=== PATIENT | female | born 1980 | race Caucasian/White ===

== ENCOUNTER 2016-09-03 08:54 | Outpatient (CLI) | payer MEDICARE, OTHER ==
[2014-04-21 19:27] VITALS: BP 107/50
--- NOTE | 2016-09-03 14:11 | Diagnostic Imaging Report ---
SHERYL QUIROS [facility] [address] [facility] [address] [id number] Report Submission Date: Sep 03, 2016 12:49:08 PM CDT Patient Study Name: ANN ROBLES Date: Sep 03, 2016 9:12:39 AM CDT Modality Type: US Gender: F Description: US ABD LIMITED : 84 Institution: [facility] Physician: SHERYL QUIROS Examination: Ultrasound abdomen History: Elevated liver enzymes Findings: Sonographic evaluation of the right upper quadrant demonstrates the gallbladder without stones or sludge. Gallbladder wall measures 1.9 mm. Common bile duct measures 1.8 mm. No intrahepatic biliary dilation. Liver demonstrates normal homogeneous echogenicity. No mass or cyst. Normal flow on color analysis. Right kidney measures 9.0 cm in length. No cortical mass or cyst. No hydronephrosis. Pancreatic region without gross irregularity. Impression: No gallstone or obstruction. Unremarkable abdominal ultrasound. Electronically signed on Sep 03, 2016 12:49:08 PM CDT by: Cain JEROME
== END 2016-09-03 08:55 ==
LOC: RAD 08:54
PROVIDERS: ATTEND Nurse Practitioner Family
DX: R79.89 Other specified abnormal findings of blood chemistry (principal); G23.0 Hallervorden-Spatz disease
CPT/HCPCS: 76705

== ENCOUNTER 2018-10-30 10:02 | Emergency (ER) | payer MEDICARE, OTHER ==
--- NOTE | 2018-10-30 10:27 | ED Physician Documentation ---
General Adult - HISTORIAN Historian: patient, parent - HPI Stated Complaint: Fever, low O2 sat Chief Complaint: General Adult Onset: days ago (1) Timing: still present Severity: moderate Further Comments: yes (Pt is a 38 yo female with MR who lives at home. Pt is wheel-chair bound. She has hx aspiration and now has a G-tube. This am Mom found SpO2 in mid 80%'s, and HR=33 briefly. Pt also gets easily dehydrated. Pt had fever at home. On presentation, pt has stable vs. Mouth appears dry, but pt is a mouth breather. Mom says urine has been cloudy.) - ROS CONST: other (Pt cannot give ROS.) - PAST HX Past History: other (MR, hx aspiration with G-tube placed.) Allergies/Adverse Reactions: Allergies Allergy/AdvReac Type Severity Reaction Status Date / Time No Known Allergies Allergy Verified 10/30/18 10:15 Home Medications: Ambulatory Orders Medication Instructions Recorded NK 10/30/18 - SOCIAL HX Smoking History: non-smoker Alcohol Use: none Drug Use: none - FAMILY HX Family History: No - VITAL SIGNS Vital Signs: Vital Signs Temp Pulse Resp BP Pulse Ox 100.5 F H 101 H 14 97/58 98 10/30/18 10:03 10/30/18 10:03 10/30/18 10:03 10/30/18 10:03 10/30/18 10:03 - REVIEWED ASSESSMENTS Nursing Assessment Reviewed: Yes Vitals Reviewed: Yes Progress - Progress Progress: CXR: No pneumothorax, pulmonary edema, or consolidative infiltrates. The heart is not enlarged. No fractures are identified about the bony thorax. IMPRESSION: No acute intrathoracic process identified. NS 500 cc IVF x 2 u/a - neg Dehydration. May give pedialyte via G-tube. General Adult Physical Exam - PHYSICAL EXAM GENERAL APPEARANCE: no distress EENT: dry mucous membranes (mouth breather) NECK: normal inspection, supple RESPIRATORY: no resp distress, chest non-tender, breath sounds normal CVS: reg rate & rhythm, heart sounds normal ABDOMEN: soft, no organomegaly, normal bowel sounds BACK: normal inspection SKIN: warm/dry, normal color EXTREMITIES: non-tender, other (baseline ) NEURO: other (baseline mental status) Discharge Clincal Impression: Dehydration Referrals: Barbara Haskins MD [Primary Care Provider] - 2 Days Condition: Stable Decision to Admit: NO Decision Time: 13:02
[2018-10-30] MEDS ORDERED: 0.9 % SODIUM CHLORIDE 500 ML IV ONE ×2 (10:32→11:43)
[2018-10-30 10:58] LABS: BASOPHILS % 0.4 % (0.0-1.5); NEUTROPHILS # 10.3 # k/uL (1.4-7.7)
[2018-10-30 11:14] LABS: eGFR (Non-African) > 60
[2018-10-30 13:12] VITALS: BP 112/60
[2018-10-30 18:12] LABS: APPEARANCE,URINE CLOUDY (CLEAR); COLOR,URINE YELLOW (YELLOW)
[2018-10-30 18:13] LABS: OCCULT BLOOD,URINE NEGATIVE (NEGATIVE); UROBILINOGEN URINE 0.2 Eu (0.2-1.0)
--- NOTE | 2018-11-02 14:20 | Diagnostic Imaging Report ---
MARISELA MARCANO [facility] [address] [facility] [address] [place] [address]. [id number] Report Submission Date: Oct 30, 2018 11:53:15 AM CDT Patient Study Name: ANN ROBLES Date: Oct 30, 2018 11:00:05 AM CDT Modality Type: DX Gender: F Description: CHEST 1VIEW : 84 Institution: [facility] Physician: MARISELA MARCANO HISTORY: 38-year-old female with fever, history of aspiration COMPARISON: None available. TECHNIQUE: Single portable AP view of the chest was performed with apical lordotic technique. FINDINGS: No pneumothorax, pulmonary edema, or consolidative infiltrates. The heart is not enlarged. No fractures are identified about the bony thorax. IMPRESSION: No acute intrathoracic process identified. Electronically signed on Oct 30, 2018 11:53:15 AM CDT by: Faisal JEROME
== END 2018-10-30 13:08 ==
LOC: ED 10:02
DX: E86.0 Dehydration (principal)
CPT/HCPCS: 71045; 80053; 81002; 85025; 87040; 96360; 96361; 99281; 99284; J7060; S1016